=== PATIENT | male | born 1980 | race Caucasian/White ===

== ENCOUNTER → 2018-05-04 | Outpatient (CLI) | payer BC ==
--- NOTE | 2018-05-04 16:45 | EKG ---
FACILITY: [facility] - [place] PATIENT NAME: NIYA CRAWFORD : [id number] MR: [id number] V: [id number] EXAM DATE: ORDERING PHYSICIAN: ROCKY KIDD TECHNOLOGIST: Test Reason : irregular heartrate Blood Pressure : / mmHG Vent. Rate : 073 BPM Atrial Rate : 073 BPM P-R Int : 152 ms QRS Dur : 086 ms QT Int : 360 ms P-R-T Axes : 075 078 052 degrees QTc Int : 396 ms Sinus rhythm Possible left atrial enlargement Diffuse ST elevation - suspect early repolarization, but cannot exclude other causes Moderate voltage criteria for LVH, may be normal variant Borderline ECG No previous ECGs available Confirmed by RENITA SHEEHAN ([id number]) on 05/04/2018 4:56:47 PM Referred By: Confirmed By:RENITA SHEEHAN
== END ==
LOC: RESP 16:20
PROVIDERS: ATTEND Nurse Practitioner Psychiatric/Mental Health
DX: R94.31 Abnormal electrocardiogram [ECG] [EKG] (principal)
CPT/HCPCS: 93005